=== PATIENT | male | born 1980 | race Caucasian/White ===

== ENCOUNTER 2019-03-23 20:44 | Emergency (ER) | payer OTHER ==
[~2019-03-23] VITALS: Ht 177.8 cm; Wt 97.5 kg
[2019-03-23 20:55] VITALS: BP_SYST 124
[2019-03-23] MEDS ORDERED: BACITRACIN 1 GM OINT TP ONE (23:15)
[2019-03-23] MEDS ORDERED: LIDOCAINE 1% 10 MG/ML, 20 ML MDV IJ ONE (23:15)
[2019-03-23] MEDS ORDERED: DIPH-TET-PERTUS Vaccine 0.5 ML VIAL (ADACEL) IM ONE (23:15)
[2019-03-24 00:48] VITALS: BP_SYST 124
== END 2019-03-24 00:48 | disposition home or self-care (01) ==
LOC: SED 20:44
DX: S61.011A Laceration without foreign body of right thumb without damage to nail, initial encounter (principal); W26.8XXA Contact with other sharp object(s), not elsewhere classified, initial encounter; Y93.89 Activity, other specified; Y92.89 Other specified places as the place of occurrence of the external cause; Y99.8 Other external cause status
CPT/HCPCS: 12002; 90471; 90715; 99283; J2001